=== PATIENT | female | born 1985 | race Asian ===

== ENCOUNTER 2016-07-26 12:35 | Inpatient (IN) | payer BC ==
[2016-07-26] VITALS (24 sets, daily range): BP systolic 95–456; BP diastolic 49–83; PULSE 66–118; TEMP 98.6–98.8
[~2016-07-26] VITALS: Ht 149.9 cm; Wt 79.1 kg
[~2016-07-26 12:35] MED LIST: MOTRIN 600600 MG/TAB PO; NORCO 325 MG-7.1 TAB PO; PERCOCET 325 MG1 TA2 PO; PRENATAL1 TA1 PO; ZOFRAN ODT4 MG PO
[2016-07-26] MEDS ORDERED: DIABETA 2.5MG2.5 MG PO (13:10)
[2016-07-26 13:19] LABS: BASO % 0.4 % (0.0-2.0); EOS # 0.2 (0.0-0.7); EOS % 2.8 % (0-4.0); GRAN % 57.3 % (42.2-75.2); HEMATOCRIT 42.5 % (37.0-47.0); HEMOGLOBIN 14.4 g/dl (12.5-16.0); LYMPH # 2.1 (1.2-3.4); LYMPH % 30.3 % (20.0-51.0); MEAN CELL VOLUME 89 fl (80.0-100.0); MEAN CORPUSCULAR HEMOGLOBIN 30 pg (27.0-31.0); MEAN CORPUSCULAR HGB CONC 34 g/dl (33.0-37.0); MEAN PLATELET VOLUME 12.3 fl (7.4-10.4); MONO # 0.6 (0.1-0.6); MONO % 8.5 % (1.7-9.3); PLATELET COUNT 108 K/mm3 (130-400); REDCELL DISTRIBUTION WIDTH-CV 13.4 % (11.5-14.5)
[2016-07-27 07:10] VITALS: BP 100/57; PULSE 75; TEMP 97.9
[2016-07-27 07:22] VITALS: BP 100/57; PULSE 75; TEMP 97.9
[2016-07-27] MEDS ORDERED: NORCO 325 MG-51 TAB PO (08:47)
[2016-07-27] MEDS ORDERED: IBU800 M1 PO (08:47)
[2016-07-27 11:05] LABS: HEMATOCRIT 41.1 % (37.0-47.0); HEMOGLOBIN 13.9 g/dl (12.5-16.0); MEAN CELL VOLUME 90 fl (80.0-100.0); MEAN CORPUSCULAR HEMOGLOBIN 31 pg (27.0-31.0); MEAN CORPUSCULAR HGB CONC 34 g/dl (33.0-37.0); MEAN PLATELET VOLUME 11.7 fl (7.4-10.4); PLATELET COUNT 116 K/mm3 (130-400); RED BLOOD COUNT 4.56 M/mm3 (4.10-5.30); REDCELL DISTRIBUTION WIDTH-CV 13.5 % (11.5-14.5); WHITE BLOOD COUNT 11.9 K/mm3 (4.8-10.8)
[2016-07-27 15:45] VITALS: BP 124/81; PULSE 99; TEMP 98.1
== END 2016-07-27 20:35 | disposition home or self-care (01) | DRG 775 ==
LOC: LDRO 12:35 → LDR 12:41 → OB 20:00
PROVIDERS: Obstetrics & Gynecology
PROC: 10D07Z6 Extraction of Products of Conception, Vacuum, Via Natural or Artificial Opening (ICD-10-PCS; principal; 2016-07-26)
PROC: 0KQM0ZZ Repair Perineum Muscle, Open Approach (ICD-10-PCS; 2016-07-26)
DX: O24.420 Gestational diabetes mellitus in childbirth, diet controlled (principal); O76 Abnormality in fetal heart rate and rhythm complicating labor and delivery; O69.81X0 Labor and delivery complicated by cord around neck, without compression, not applicable or unspecified; O70.1 Second degree perineal laceration during delivery; O66.0 Obstructed labor due to shoulder dystocia; Z3A.37 37 weeks gestation of pregnancy; Z37.0 Single live birth
CPT/HCPCS: J2590; J2795; J7120